=== PATIENT | female | born 1960 | race Caucasian/White ===

== ENCOUNTER 2017-05-17 01:57 | Emergency (ER) | payer OTHER ==
[~2017-05-17] VITALS: Ht 162.6 cm; Wt 125.6 kg
[~2017-05-17 01:57] MED LIST: ALBUTEROL2.5 MG/3 M INH; ALLER-TEC10 MG PO; ASPIR-LOW81 MG PO; IBUPROFEN600 MG PO; MULTI-DAY VITA1 EACH PO; OXYCODON-ACETA1 EAC2 PO; PROAIR HFA8.5 GM INH; QVAR7.3 G1 INH
[2017-05-17] MEDS ORDERED: PREDNISONE20 MG PO (02:34)
[2017-05-17] MEDS ORDERED: GUAIFENESIN-COD10 ML PO (02:34)
== END 2017-05-17 02:57 | disposition home or self-care (01) ==
LOC: ED 01:57
DX: J45.901 Unspecified asthma with (acute) exacerbation (principal); Z88.0 Allergy status to penicillin; Z79.82 Long term (current) use of aspirin; Z79.899 Other long term (current) drug therapy
CPT/HCPCS: 94640; 99283; J7512

== ENCOUNTER 2018-04-22 05:45 | Day surgery (SDC) | payer OTHER ==
[~2018-04-22] VITALS: Ht 162.6 cm; Wt 109.2 kg
[~2018-04-22 05:45] MED LIST changes: +ALEVE220 MG PO; +GUAIFENESIN-COD10 ML PO; +MAGNESIUM500 MG PO; +PREDNISONE20 MG PO
--- NOTE | 2018-04-22 09:45 | NUR ---
04/22/18 0945 Rocio Streeter [id number]-PATIENT ARRIVED TO PACU ON 6L MASK O2 SAT 100% PATIENT REACTIVE TO VOICE OPENS EYES VERY DROWSY BACK TO SLEEP. RR EVEN. DRESSING TO NECK CDI.
--- NOTE | 2018-04-22 10:01 | NUR ---
MET WITH PT'S KARMA. HE SEEMS TO BE COPING, HE IS ALSO BATTLING HEALTH ISSUES. GAVE ENCOURAGEMENT, WILL CONTINUE TO FOLLOW . GOD BLESS
--- NOTE | 2018-04-22 10:35 | NUR ---
PATIENT ARRIVED TO MEDICAL-SURGICAL FLOOR VIA HOSPITAL BED FROM PACU. PATIENT IS ALERT AND ORIENTED. VITAL SIGNS STABLE. PATIENT ON FULL LIQUID DIET. PATIENT IN BED, SCD'S IN PLACE, CALL LIGHT WITHIN REACH. IN ROOM WITH PATIENT.
--- NOTE | 2018-04-22 11:25 | NUR ---
PATIENT COMPLAINS OF INCREASING PAIN RATED 5/10. 4 MG IV MORPHINE SULFATE ADMINISTERED. PATIENT EATING JELLO. PATIENT DENIES FURTHER NEEDS AT THIS TIME, CALL LIGHT WITHIN REACH.
--- NOTE | 2018-04-22 12:40 | NUR ---
PATIENT RESTING IN BED, VISTING FAMILY. VITAL SIGNS REMAIN STABLE. CALL LIGHT WITHIN REACH. PATIENT EATING PUDDING, DENIES NAUSEA AT THIS TIME. CALL LIGHT WITHIN REACH.
--- NOTE | 2018-04-22 13:02 | NUR ---
PATIENT RATES PAIN 10/26. 600 MG MOTRIN ADMINISTERED. PATIENT VISITING FAMILY. RESPIRATIONS EVEN AND UNLABORED. PATIENT DENIES FURTHER NEEDS OR CONCERNS AT THIS TIME. CALL LIGHT WITHIN REACH.
--- NOTE | 2018-04-22 13:09 | NUR ---
PATIENT IN BED, BEDSIDE. CALL LIGHT IN REACH. NO FURTHER NEEDS AT THIS TIME.
--- NOTE | 2018-04-22 13:40 | NUR ---
VITAL SIGNS CONTINUE TO REMAIN STABLE. PATIENT UP TO BATHROOM, THEN RETURN TO BED. ONE PERSON ASSIST. CALL LIGHT WITHIN REACH, PATIENT DENIES FURTHER NEEDS. FAMILY IN ROOM WITH PATIENT.
--- NOTE | 2018-04-22 14:27 | NUR ---
STOPPED BY TO CHECK ON PT. SHE IS ALERT, ORIENTED AND SEEMS TO BE DEALING VERY APPROPRIATELY WITH SURGERY. RN IN DOING VITALS, NUMEROUS VISITORS. EXTENDED A BLESSING, WILL FOLLOW NEEDED
--- NOTE | 2018-04-22 14:40 | NUR ---
PATIENT IN BED, VISITING WITH FAMILY. RESPIRATIONS EVEN AND UNLABORED. PATIENT DENIES NEEDS AT THIS TIME. CALL LIGHT WITHIN REACH.
--- NOTE | 2018-04-22 15:28 | NUR ---
PATIENT RESTING IN BED, RESPIRATIONS EVEN AND UNLABORED. PATIENT RATES PAIN 3/10, BUT STATES CURRENT PAIN IS "TOLERABLE". CALL LIGHT WITHIN REACH.
--- NOTE | 2018-04-22 16:40 | NUR ---
AFTERNOON ASSESSMENT COMPLETE. PATIENT RATES PAIN 3/10, DENIES PAIN MANAGEMENT INTERVENTION AT THIS TIME. PATIENT EATING DINNER, CALL LIGHT WITHIN REACH.
--- NOTE | 2018-04-22 16:55 | NUR ---
IV FLUIDS DISCONTINUED PER ORDER. PATIENT TOLERATING ORAL FLUIDS WELL, VOIDING QUANTITY SUFFICIENT. CALL LIGHT WITHIN REACH.
--- NOTE | 2018-04-22 17:22 | NUR ---
PATIENT RESTING IN BED, VISITING WITH IN ROOM. RESPIRATIONS ARE EVEN AND UNLABORED. PATIENT DENIES NEEDS AT THIS TIME. PATIENT ATE 100% OF DINNER. CALL LIGHT WITHIN REACH.
[2018-04-22] MEDS ORDERED: IBUPROFEN600 MG PO (17:54)
[2018-04-22] MEDS ORDERED: MAPAP325 MG PO (17:54)
[2018-04-22] MEDS ORDERED: OXYCODON-ACETA1 EAC2 PO (17:54)
--- NOTE | 2018-04-22 18:23 | NUR ---
PATIENT SETTING UP IN BED.CALL LIGHT IN REACH, GIVING ICE WATER, NO OTHER CARE NEEDS AT THIS TIME
--- NOTE | 2018-04-22 18:34 | NUR ---
PATIENT IS A/O X4. PATIENT IS SALINE LOCKED AND AMBULATES INDEPENDENTLY. LUNG SOUNDS CEAR IN UPPER AND LOWER LOBES BILATERALLY. S1 AND S2 NOTED. PATIENT ON A FULL LIQUID DIET, TOLERATING PO FLUIDS WELL. VOIDING QUANTITY SUFFICIENT. PAIN RATED A 3/10. VITAL SIGNS STABLE.
--- NOTE | 2018-04-22 19:06 | NUR ---
RECIEVED REPORT FROM ABDIAZIZ RINCON. PT SITTING UP IN BED WITH FAMILY IN ROOM. PT COMPLAINS OF MINIMAL PAIN WITH SWALLOWING BUT DENIES PAIN MEDICATION AT THIS TIME. IV IS SALINE LOCKED. FULL LIQUID DIET WITH WATER AT BEDSIDE. HOB ELEVATED, DRESSING CLEAN, DRY AND INTACT. CALL LIGHT IN REACH.
--- NOTE | 2018-04-22 20:46 | NUR ---
ASSESSMENT COMPLETE. PT STATES PAIN IS 3/10 WHEN SHE SWALLOWS BUT DENIES PRN PAIN MEDICATIONS AT THIS TIME. PT ON CONTINUOUS PULSE OX, O2 SATURATION WNL. IV FLUSHES WELL. SCD'S IN PLACE. TRACHE SET AT BEDSIDE. DRESSING CLEAN, DRY, AND INTACT. ICE WATER AT BEDSIDE AND CALL LIGHT IN REACH.
--- NOTE | 2018-04-22 22:12 | NUR ---
PT REQUESTED PRN PAIN MEDICATIONS FOR PAIN 4/10 WITH SWALLOWING. PT ON CONTINOUS PULSE OXIMETRY WITH OXYGEN SATURATION 94%. PT GIVEN TOWEL FOR NECK, WATER AT BEDSIDE. CALL LIGHT IN REACH.
--- NOTE | 2018-04-23 00:23 | NUR ---
CHECKING ON PT TO REASSESS PAIN. PT SLEEPING, OXYGEN SATURATION 93%, BREATHING EVEN AND UNLABORED.
--- NOTE | 2018-04-23 02:30 | NUR ---
ASSESSMENT COMPLETED. PT EDUCATED ON IMPORTANCE OF KEEPING THE HOB ELEVATED WHILE IN BED. PT VERBALIZED UNDERSTANDING. PAIN 3/10 IN THROAT WHEN SWALLOWING, DENIES NEED OF PRN PAIN MEDICATION. CRACKLES IN BILATERAL LOWER LOBES. CALL LIGHT IN REACH, ICE WATER GIVEN, NO FURTHER REQUESTS.
--- NOTE | 2018-04-23 04:51 | NUR ---
PT ASLEEP IN BED. O2 91%, BREATHING EVEN AND UNLABORED. HR IN MID 70'S. HOB ELEVATED.
--- NOTE | 2018-04-23 05:24 | NUR ---
PT SLEPT THROUGHOUT SHIFT. PRN PAIN MEDICATIONS GIVEN X1. NECK DRESSING CLEAN, DRY, AND INTACT. CONTINUOUS PULSE OX ON, O2 SATURATIONS REMAINED WNL. PT IS INDEPENDENT UP TO RESTROOM. HOB ELEVATED WHILE SLEEPING. PT TOLERATING FULL LIQUID DIET. SCD'S IN PLACE.
--- NOTE | 2018-04-23 06:59 | NUR ---
ARELY CALLED REGARDING D/C INSTRUCTIONS. TELEPHONE ORDER TO REMOVE DRESSING, LEAVE STERI STRIPS IN PLACE. OKAY TO DC PT AT THIS TIME. UPDATED ON PT CONDITION.
--- NOTE | 2018-04-23 07:03 | NUR ---
SHIFT REPORT RECEIVED FROM INTERNATIONAL SALES REPRESENTATIVE RN AT BEDSIDE. PATIENT IN BED, RESPIRATIONS ARE EVEN AND UNLABORED. CALL LIGHT WITHIN REACH. PATIENT DENIES FURTHER REQUESTS AT THIS TIME.
--- NOTE | 2018-04-23 08:13 | NUR ---
PATIENT UP DOING AM CARE, INDEPENDENT. CALL LIGHT IN REACH. NO FURTHER NEEDS AT THIS TIME.
--- NOTE | 2018-04-23 08:30 | NUR ---
PATIENT IN ROOM WITH . NO REQUESTS AT THIS TIME.
--- NOTE | 2018-04-23 09:06 | NUR ---
MORNING ASSESSMENT COMPLETE. PATIENT RATES PAIN 2/10, 600 MG PO MOTRIN ADMINISTERED. PATIENT IN ROOM, AWAITING DISCHARGE INSTRUCTIONS FROM PHARMACY.
--- NOTE | 2018-04-23 09:30 | NUR ---
VERBAL AND WRITTEN DISCHARGE INSTRUCTIONS COMPLETE, ALL QUESTIONS ANSWERED APPROPERIATELY. VITAL SIGNS STABLE. PATIENT INDEPENDENTLY AMBULATED WITH NURSING STAFF TO FRONT HOSPITAL ENTRANCE. TO DRIVE PATIENT HOME.
--- NOTE | 2018-04-24 09:27 | OR ---
[facility] [address] [place], [place] [address] Signed DATE OF OPERATION: 04/22/2018 SURGEON: Cristiano Mcgee MD PREOPERATIVE DIAGNOSES: Right thyroid lobe complex cystic lesion, additional cystic lesion of upper lobe. POSTOPERATIVE DIAGNOSES: Complex right thyroid cystic lesion with solid components. Frozen pathology showing follicular cells. No confirmed malignancy. PROCEDURE PERFORMED: Right thyroid lobectomy with isthmusectomy and excision of concomitant pyramidal lobe. ANESTHESIA: General endotracheal, Olvin Aguilar CRNA. INDICATION: This 57-year-old white woman is a patient of CAROLA Nguyen. She is known to me from the past having undergone right breast cancer treatment in the past. She has incidentally noted on a CT scan of having an abnormal thyroid and an ultrasound confirmed a complex cyst of the right thyroid lobe and a very small 5 mm cyst of the left lobe. The complex cystic lesion is 2.2 cm in dimension. She has no symptoms of dysphagia. She does have some subjective symptom of swelling in the neck, however, no gross evidence of the same and she thinks that her voice has changed specifically to be "raspy." She has had radiation therapy for breast cancer on the right side, but unlikely to have any affect to her neck specifically. Options of management have been reviewed including continued observation, fine-needle aspiration biopsy by imaging technique (since not palpable) as well as right thyroid lobectomy. She prefers strongly the latter. If malignancy is identified then completion thyroidectomy would be anticipated as well. I have reviewed with the patient and her , the risks of bleeding, infection, recurrent laryngeal nerve injury, external laryngeal nerve injury, parathyroid excision which would be unintended, and other unforeseen complications. She understands and wish to proceed. FINDINGS: The cystic lesion itself had a hemorrhagic appearance at least appeared purple. It was Electronically Signed By: CRISTIANO MCGEE MD 04/24/18 0927 PATIENT NAME: SCOTT MORRISON OPERATIVE REPORT DATE OF : 60 REPORT #: [id number] PHYSICIAN: CRISTIANO MCGEE MD PCP: ARVIND GOMEZ REPORT IS CONFIDENTIAL AND NOT TO BE RELEASED WITHOUT AUTHORIZATION [facility] [address] [place], [place] [address] Signed located in the lower to mid portion of the right thyroid lobe. There was a pyramidal lobe additionally noted of no real consequence, but it was excised in continuity with the isthmus. A small amount of lower pole thyroid tissue and presumably parathyroid were left in situ based on the high vascularity of the gland itself, so as to minimize chances of recurrent laryngeal nerve injury. The recurrent laryngeal nerve was seen entering into the lateral aspect of the larynx and was unharmed. Frozen pathology of the lesion by Dr. Vinay Schaefer could confirm only complex cyst with follicular cells with no papillary features thus considered benign on frozen pathology, though final pathology is pending of course. DESCRIPTION OF PROCEDURE: The patient was brought to the operating room, given a general endotracheal anesthetic. A shoulder roll was placed, only slight neck extension was employed. A natural skin crease have been marked prior to operation. The arms were padded and carefully placed at the side. A reagan longue position was maintained. The neck and chest were prepared with a chlorhexidine solution and draped sterilely. In the area of the skin crease, an incision was made from the medial aspect of the sternocleidomastoid muscles bilaterally. Dissection carried through the dermis with electrocautery and subcutaneous and platysma layers additionally divided with electrocautery. Superior and inferior flaps were developed with both blunt and electrocautery dissection. Gelpi retractors were placed. The midline strap muscles were identified and incision with electrocautery made in the avascular plane between them. The sternohyoid and sternothyroid muscles were dissected free sharply retracting the right-sided muscles exposing underlying thyroid. There was a relatively large vein that coursed directly over the midportion of the thyroid gland, which required ligation and division to expose the thyroid more fully. The thyroid itself was inspected and a violaceous appearing cystic lesion was noted in the right lower to midportion. Using sharp and blunt dissection, the lateral aspect of the thyroid was dissected free. A small thyroidal veins were ligated with 4-0 silk ties. Inferiorly, dissection was undertaken and a fair number of small vessels were similarly dissected free and ligated variably with 4-0 silk ties and occasionally extra application of clips. Attention was turned to the superior pole, which was freed with meticulous care with individual ligation of the superior polar vessels. A pyramidal lobe was identified and subsequently dissected free. The thyroid was dissected from superior to inferior direction in the upper pole, which allowed it to roll from the posterior aspect more fully and with meticulous care, the small vessels were either clipped or ligated with 4-0 silk ties, thyroid rolling toward the midline well. The recurrent laryngeal nerve was noted to enter into the Electronically Signed By: CRISTIANO MCGEE MD 04/24/18 0927 PATIENT NAME: SCOTT MORRISON OPERATIVE REPORT DATE OF : 60 REPORT #: [id number] PHYSICIAN: CRISTIANO MCGEE MD PCP: ARVIND GOMEZ REPORT IS CONFIDENTIAL AND NOT TO BE RELEASED WITHOUT AUTHORIZATION [place] [id number] [facility] [place], [place] [address] Signed cricothyroid membrane in the lateral aspect and was well out of harm's way. Ultimately, the thyroid was freed posteriorly and subsequently the pyramidal lobe freed. The isthmus was secured with hemostats. The parenchyma divided and the specimen passed for pathology. The parenchymal remnants were secured with 4-0 silk suture. Irrigation was undertaken. There was no untoward bleeding. Small amount of Dino was placed in the posterior aspect. The inferior parathyroid gland was nestled and some remnant of thyroid, which was left in situ inferiorly. The superior parathyroid gland was not identified and may or may not be included in the specimen excised. The LP retractors were once again placed and once satisfied, there was good hemostasis. Midline strap muscles were reapproximated with interrupted 2-0 Vicryl suture. The skin was closed with running subcuticular 4-0 Vicryl. Steri-Strips were applied. By this point, the frozen pathology report returned on the complex right lower to mid cystic lesion showing follicular cells. No sign of invasion and thus considered benign on frozen pathology. Final pathology is pending. A Mepilex silver sponge dressing was applied to the anterior neck and a portion of OpSite applied to secure in place. The patient was ultimately allowed to awaken and emerged from anesthesia and taken to recovery room in good condition, having suffered no complication. Sponge, needle, and instrument counts reported as correct x3. MD KATIE Diego/LUIS ENRIQUE /[id number] cc: CAROLA Nguyen Copies: ARVIND GOMEZ ~ Electronically Signed By: CRISTIANO MCGEE MD 04/24/18 0927 PATIENT NAME: DELILAH MORRISONIDI AMAN OPERATIVE REPORT DATE OF : 60 REPORT #: [id number] PHYSICIAN: CRISTIANO MCGEE MD PCP: ARVIND GOMEZ REPORT IS CONFIDENTIAL AND NOT TO BE RELEASED WITHOUT AUTHORIZATION
== END 2018-04-23 09:30 | disposition home or self-care (01) ==
LOC: DS 05:45 → MS 10:30 → DS 04-23 09:30
PROVIDERS: Surgery
PROC: 0GTH0ZZ Resection of Right Thyroid Gland Lobe, Open Approach (ICD-10-PCS; principal; 2018-04-22 06:45)
DX: D34 Benign neoplasm of thyroid gland (principal); J45.909 Unspecified asthma, uncomplicated; I10 Essential (primary) hypertension; E66.9 Obesity, unspecified; Z88.0 Allergy status to penicillin; Z79.899 Other long term (current) drug therapy; Z79.82 Long term (current) use of aspirin; Z98.890 Other specified postprocedural states; Z85.3 Personal history of malignant neoplasm of breast; Z68.41 Body mass index [BMI] 40.0-44.9, adult
CPT/HCPCS: 00320; 94762; J2250; J2270; J2405; J2704; J2765; J3010; J7120

== ENCOUNTER 2019-09-23 22:08 | Emergency (ER) | payer OTHER ==
[~2019-09-23] VITALS: Ht 162.6 cm; Wt 118.8 kg
[~2019-09-23 22:08] MED LIST changes: +MAPAP325 MG PO
[2019-09-23] MEDS ORDERED: LEVOTHYROXINE75 MCG PO (22:26)
--- NOTE | 2019-09-24 07:44 | EKG ---
[facility] [address] [facility] [place] [address] Signed Normal sinus rhythm Normal ECG When compared with ECG of 16-APR-2018 13:28, Vent. rate has increased BY 35 BPM Inverted T waves have replaced nonspecific T wave abnormality in Inferior leads Confirmed by TUNG FULTON MD ([id number]) on 09/24/2019 7:44:36 AM Electronically Signed By: TUNG FULTON MD 09/24/19 0744 PATIENT NAME: DELILAH MORRISONIDI AMAN Electrocardiogram DATE OF : 60 PHYSICIAN: TUNG FULTON MD REPORT #: [id number] REPORT IS CONFIDENTIAL AND NOT TO BE RELEASED WITHOUT AUTHORIZATION
== END 2019-09-24 02:40 | disposition home or self-care (01) ==
LOC: ED 22:08
DX: R07.89 Other chest pain (principal); Z85.3 Personal history of malignant neoplasm of breast; J45.909 Unspecified asthma, uncomplicated; Z88.0 Allergy status to penicillin; Z79.899 Other long term (current) drug therapy
CPT/HCPCS: 71046; 80053; 83735; 84484; 85025; 93005; 93010; 99285-25

== ENCOUNTER 2020-12-18 17:44 | Emergency (ER) | payer OTHER ==
[~2020-12-18] VITALS: Ht 162.6 cm; Wt 118.8 kg
[~2020-12-18 17:44] MED LIST changes: +LEVOTHYROXINE75 MCG PO
[2020-12-18] MEDS ORDERED: FLUTICASONE PRO16 GM NAS (18:14)
[2020-12-18] MEDS ORDERED: QVAR REDIHALE10.6 GM NAS (18:14)
[2020-12-18] MEDS ORDERED: HYDROCODON-ACE1 EA10 PO (19:47)
== END 2020-12-18 20:00 | disposition home or self-care (01) ==
LOC: ED 17:44
DX: S86.911A Strain of unspecified muscle(s) and tendon(s) at lower leg level, right leg, initial encounter (principal); S70.01XA Contusion of right hip, initial encounter; W10.8XXA Fall (on) (from) other stairs and steps, initial encounter; J45.909 Unspecified asthma, uncomplicated; Z85.3 Personal history of malignant neoplasm of breast; E03.9 Hypothyroidism, unspecified; Z88.0 Allergy status to penicillin; Z79.899 Other long term (current) drug therapy
CPT/HCPCS: 73502; 73560; 99283-25

== ENCOUNTER 2021-02-04 03:32 | Emergency (ER) | payer OTHER ==
[~2021-02-04] VITALS: Ht 162.6 cm; Wt 116.6 kg
[~2021-02-04 03:32] MED LIST changes: +FLUTICASONE PRO16 GM NAS; +HYDROCODON-ACE1 EA10 PO; +QVAR REDIHALE10.6 GM NAS
--- NOTE | 2021-02-06 18:04 | EKG ---
[facility] [address] [facility] [place] [address] Signed Sinus tachycardia Possible Left atrial enlargement Nonspecific T wave abnormality Abnormal ECG When compared with ECG of 23-SEP-2019 22:17, No significant change was found Confirmed by CELSA ARRIAGA MD ([id number]) on 02/06/2021 6:04:06 PM Electronically Signed By: CELSA ARRIAGA MD 02/06/21 1804 PATIENT NAME: TAMIKOSCOTT Electrocardiogram DATE OF : 60 PHYSICIAN: CELSA ARRIAGA MD REPORT #: [id number] REPORT IS CONFIDENTIAL AND NOT TO BE RELEASED WITHOUT AUTHORIZATION
== END 2021-02-04 06:56 | disposition home or self-care (01) ==
LOC: ED 03:32
DX: R10.13 Epigastric pain (principal); J45.909 Unspecified asthma, uncomplicated; Z85.3 Personal history of malignant neoplasm of breast; E03.9 Hypothyroidism, unspecified; Z88.0 Allergy status to penicillin; Z79.899 Other long term (current) drug therapy
CPT/HCPCS: 71045; 80053; 83735; 84484; 85025; 93005; 93010; 99285-25

== ENCOUNTER 2021-09-03 19:31 | Emergency (ER) | payer OTHER ==
[~2021-09-03] VITALS: Ht 162.6 cm; Wt 113.4 kg
--- NOTE | 2021-09-04 07:50 | EKG ---
[facility] [address] [facility] [place], [place] [address] Signed Normal sinus rhythm Normal ECG When compared with ECG of 04-FEB-2021 03:42, Nonspecific T wave abnormality, improved in Anterior leads Confirmed by TUNG FULTON MD ([id number]) on 09/04/2021 7:50:23 AM Electronically Signed By: TUNG FULTON MD 09/04/21 0750 PATIENT NAME: TAMIKOSCOTT Electrocardiogram DATE OF : 60 PHYSICIAN: TUNG FULTON MD REPORT #: [id number] REPORT IS CONFIDENTIAL AND NOT TO BE RELEASED WITHOUT AUTHORIZATION
== END 2021-09-03 21:29 | disposition home or self-care (01) ==
LOC: ED 19:31
DX: U07.1 COVID-19 (principal); E03.9 Hypothyroidism, unspecified; J45.909 Unspecified asthma, uncomplicated; Z88.0 Allergy status to penicillin; Z79.890 Hormone replacement therapy; Z79.899 Other long term (current) drug therapy; Z85.3 Personal history of malignant neoplasm of breast
CPT/HCPCS: 71045; 80053; 85025; 93005; 93010; 99284-25

== ENCOUNTER 2023-10-04 17:41 | Emergency (ER) | payer OTHER ==
[~2023-10-04] VITALS: Ht 162.6 cm; Wt 116.6 kg
[2023-10-04 17:59] LABS: EOSINOPHILS 0.8 % (0-6); HEMATOCRIT 34.8 % (35.0-50.0); HEMOGLOBIN 11.9 g/dL (12.0-18.0); LYMPHOCYTES 25.8 % (24-44); MCH 34.3 (27-36); MCHC 34.2 g/dl (30-36); MCV 100.3 fl (81-99); MONOCYTES 5.8 % (0-12); NEUTROPHILS 66.6 % (39-80); PLATELET COUNT 142 K/uL (140-440); RBC 3.47 M/ul (4.3-5.7); RDW 15.1 (10.5-15.0)
[2023-10-04 18:10] LABS: ALBUMIN 3.9 g/dL (3.4-5.0); ALKALINE PHOSPHATASE 77 U/L (46-116); ALT (SGPT) 16 U/L (14-59); ANION GAP 16.6 (7-21); AST (SGOT) 12 U/L (15-37); BILIRUBIN, TOTAL 0.4 ng/dL (0.2-1.0); BUN/CREATININE RATIO 29.26 (6.0-28.6); CALCIUM 8.7 mg/dL (8.5-10.1); CARBON DIOXIDE 25 mmol/L (21-32); CHLORIDE 102 mmol/L (98-107); CREATININE, SERUM 0.82 mg/dL (0.55-1.02); GLOMERULAR FILTRATION RATE,EST 80 mL/min (>60); MAGNESIUM 1.9 mg/dL (1.8-2.4); POTASSIUM 3.6 mmol/L (3.5-5.1); PROTEIN, TOTAL 6.9 g/dL (6.4-8.2); UREA NITROGEN 24 mg/dL (7-18)
[2023-10-04 18:59] VITALS: BP 139/82
--- NOTE | 2023-10-05 13:00 | EKG ---
[facility] [address] [facility] [place] [address] Signed Normal sinus rhythm Normal ECG When compared with ECG of 03-SEP-2021 19:41, No significant change was found Confirmed by Chris Santos MD () on 10/05/2023 1:00:16 PM Electronically Signed By: CHRIS SANTOS MD 10/05/23 1300 PATIENT NAME: SCOTT MORRISON Electrocardiogram DATE OF : 60 PHYSICIAN: CHRIS SANTOS MD REPORT #: [id number] REPORT IS CONFIDENTIAL AND NOT TO BE RELEASED WITHOUT AUTHORIZATION
== END 2023-10-04 19:00 | disposition home or self-care (01) ==
LOC: ED 17:41
PROVIDERS: Emergency Medicine
DX: R55 Syncope and collapse (principal); J45.909 Unspecified asthma, uncomplicated; E03.9 Hypothyroidism, unspecified; Z88.0 Allergy status to penicillin; Z79.890 Hormone replacement therapy; Z79.51 Long term (current) use of inhaled steroids
CPT/HCPCS: 36415; 80053; 83735; 84484; 85025; 93005; 93010; 99284-25

== ENCOUNTER 2025-01-28 14:37 | Emergency (ER) | payer OTHER ==
[~2025-01-28] VITALS: Ht 160 cm; Wt 113.9 kg
[~2025-01-28 14:37] MED LIST changes: +BUDESONIDE-FO10.2 GM NAS; +EUTHYROX88 MCG PO; +IBRANCE75 M1 PO; -LEVOTHYROXINE75 MCG PO; +LISINOPRIL20 MG PO
[2025-01-28] MEDS ORDERED: FASLODEX250 MG/5 M IM (14:52)
[2025-01-28 15:16] LABS: BASOPHILS 0.4 % (0.1-1.2); EOSINOPHILS 1.5 % (0.7-5.8); HEMATOCRIT 41.5 % (34.1-44.9); HEMOGLOBIN 13.5 g/dL (11.2-15.7); LYMPHOCYTES 14.3 % (19.3-51.7); MCH 30.5 PG (25.6-32.2); MCHC 32.5 g/dL (32.2-35.5); MCV 93.9 fL (79.4-94.8); MONOCYTES 3.5 % (4.7-12.5); NEUTROPHILS 80.1 % (34.0-71.1); PLATELET COUNT 175 K/uL (182-369); RBC 4.42 M/uL (3.93-5.22)
[2025-01-28 15:29] LABS: BILIRUBIN, URINE NEGATIVE (negative); BLOOD/HGB, URINE NEGATIVE (Negative); KETONE, URINE SMALL (Negative); LEUK ESTERASE, URINE NEGATIVE (negative); NITRITE, URINE NEGATIVE (negative)
[2025-01-28 15:36] LABS: BACTERIA, URINE NONE SEEN /hpf (negative); CASTS, URINE NONE SEEN \\lpf; COLLECTION TYPE, URINE CLEAN CATCH; CRYSTALS, URINE NONE SEEN (0-1+); EPITHELIAL CELLS, URINE NONE SEEN /lpf (0-1+); RED BLOOD CELLS, URINE 0-1 /hpf (0-5); REFLEX CULTURE, URINE No (No); WHITE BLOOD CELLS, URINE 0-1 /HPF (0-5)
[2025-01-28 15:38] LABS: ALBUMIN 3.8 g/dL (3.4-5.0); ALBUMIN/GLOBULIN RATIO 1.03 (1.1-2.4); ALKALINE PHOSPHATASE 104 U/L (46-116); ALT (SGPT) 26 U/L (14-59); ANION GAP 12.7 (7-21); AST (SGOT) 17 U/L (15-37); BILIRUBIN, TOTAL 0.4 mg/dL (0.2-1.0); BUN/CREATININE RATIO 14.89 (6.0-28.6); CALCIUM 8.9 mg/dL (8.5-10.1); CARBON DIOXIDE 28 mmol/L (21-32); CHLORIDE 102 mmol/L (98-107); CREATININE, SERUM 0.94 mg/dL (0.55-1.02); GLOMERULAR FILTRATION RATE,EST 68 mL/min (>60); POTASSIUM 3.7 mmol/L (3.5-5.1); PROTEIN, TOTAL 7.5 g/dL (6.4-8.2); UREA NITROGEN 14 mg/dL (7-18)
[2025-01-28 17:36] VITALS: BP 134/75
--- NOTE | 2025-01-30 10:11 | EKG ---
[facility] [address] [facility] [place] [address] Signed Normal sinus rhythm Normal ECG When compared with ECG of 04-OCT-2023 17:53, No significant change was found Confirmed by Nikolai Rush DO ([id number]) on 01/30/2025 10:11:08 AM Electronically Signed By: NIKOLAI RUSH DO 01/30/25 1011 PATIENT NAME: TAMIKOSCOTT Electrocardiogram DATE OF : 60 PHYSICIAN: NIKOLAI RUSH DO REPORT #: [id number] REPORT IS CONFIDENTIAL AND NOT TO BE RELEASED WITHOUT AUTHORIZATION
== END 2025-01-28 17:38 | disposition home or self-care (01) ==
LOC: ED 14:37
PROVIDERS: Emergency Medicine
DX: R07.89 Other chest pain (principal); J45.909 Unspecified asthma, uncomplicated; Z88.8 Allergy status to other drugs, medicaments and biological substances; Z79.890 Hormone replacement therapy; Z79.899 Other long term (current) drug therapy
CPT/HCPCS: 36415; 80053; 81001; 83735; 84484; 85025; 93005; 93010; 99285

== ENCOUNTER 2025-03-29 06:25 | Day surgery (SDC) | payer OTHER ==
[~2025-03-29] VITALS: Ht 162.6 cm; Wt 114.4 kg
[~2025-03-29 06:25] MED LIST changes: +FASLODEX250 MG/5 M IM; +MIDAZOLAM HCL 5 MG/5 ML VIAL IV PRN; +fentaNYL citrate 100 MCG/2 ML VIAL IV PRN
[2025-03-29 06:52] VITALS: BP 119/59
[2025-03-29] MEDS ORDERED: MIDAZOLAM HCL 5 MG/5 ML VIAL ONE (06:54)
[2025-03-29] MEDS ORDERED: fentaNYL citrate 100 MCG/2 ML VIAL ONE (06:54)
[2025-03-29] MEDS ORDERED: IBLOOD GLUCOSE TEST STRIP 1 EA TEST VI PRN (07:00)
[2025-03-29] MEDS ORDERED: LACTATED RINGER'S 1,000 ML IV SCH (07:00)
[2025-03-29] MEDS ORDERED: LIDOCAINE HCL 1% 5 ML SDV INJ ONE (07:00)
--- NOTE | 2025-03-29 07:35 | NUR ---
PT NOT AVAILABLE FOR VISIT. PROVIDED PRAYER.
--- NOTE | 2025-03-29 08:18 | NUR ---
03/29/[address] PRESENTS TO PATIENT'S BEDSIDE AND IS SPEAKING WITH THE PATIENT. HER QUESTIONS ARE ANSWERED.
[2025-03-29 08:46] VITALS: BP 126/75
--- NOTE | 2025-03-31 11:57 | OR ---
[facility] [address] [place], [place] [address] Signed DATE OF OPERATION: 03/29/2025 SURGEON: Cristiano Mcgee MD PREOPERATIVE DIAGNOSIS: Colon screening. POSTOPERATIVE DIAGNOSIS: Normal colon to cecum. PROCEDURE: Total colonoscopy to cecum. ANESTHESIA: Intravenous sedation fentanyl 150 mcg and Versed 6 mg. INDICATION: This 64-year-old white woman is a patient of Arvind Mccray and last underwent colonoscopy in 2010. Normal colonoscopy was noted at that time. She does have family history of polyps of the colon in her mother, but no family history of colon cancer proper. She is admitted at this time to undergo colonoscopy. She understands the risk of bleeding, infection, and perforation. FINDINGS: The prep was excellent. Complete colonoscopy was then taken of the cecum. The colon was entirely normal to the cecum. There were no abnormalities, specifically no polyps, diverticular formation, colitis, or cancer. DESCRIPTION OF PROCEDURE: The patient was brought to the endoscopy suite and placed in lateral decubitus position, given intravenous sedation to the point of slurred speech and nystagmus. Digital rectal examination was normal. An Olympus video colonoscope was passed in the rectum and manipulated throughout the colon ultimately intubating the cecum itself. The ileocecal valve and appendiceal orifice were normal. The scope was withdrawn from that point. Examination throughout showed no sign of abnormality specifically no polyps, diverticular formation, colitis, or cancer. Retroflexed view was normal as well. The scope was removed. The patient was taken to the recovery room in good condition. Electronically Signed By: CRISTIANO MCGEE MD 03/31/25 1157 PATIENT NAME: SCOTT MORRISON OPERATIVE REPORT DATE OF : 60 REPORT #: [id number] PHYSICIAN: CRISTIANO MCGEE MD PCP: ARVIND MCCRAY REPORT IS CONFIDENTIAL AND NOT TO BE RELEASED WITHOUT AUTHORIZATION [facility] [address] [facility], [place] [address] Signed CONCLUDING DIAGNOSIS: Normal colon to cecum. PLAN: Recommend repeat colonoscopy in 10 years, sooner if clinically indicated. The patient will return to the ongoing care of CAROLA Nguyen. MD KATEI Diego/LUIS ENRIQUE /[id number] cc: CAROLA Nguyen Copies: ARVIND MCCRAY ~ Electronically Signed By: CRISTIANO MCGEE MD 03/31/25 1157 PATIENT NAME: SCOTT MORRISON OPERATIVE REPORT DATE OF : 60 REPORT #: [id number] PHYSICIAN: CRISTIANO MCGEE MD PCP: ARVIND MCCRAY REPORT IS CONFIDENTIAL AND NOT TO BE RELEASED WITHOUT AUTHORIZATION
== END 2025-03-29 08:55 | disposition home or self-care (01) ==
LOC: DS 06:25 → OPS 06:25 → DS 07:30 → OPS 08:55
PROVIDERS: ATTEND Surgery
PROC: 0DJD8ZZ Inspection of Lower Intestinal Tract, Via Natural or Artificial Opening Endoscopic (ICD-10-PCS; principal; 2025-03-29 07:30)
DX: Z12.11 Encounter for screening for malignant neoplasm of colon (principal); J45.909 Unspecified asthma, uncomplicated; I10 Essential (primary) hypertension; E89.0 Postprocedural hypothyroidism; Z83.719 Family history of colon polyps, unspecified; Z79.890 Hormone replacement therapy; Z79.899 Other long term (current) drug therapy; Z88.0 Allergy status to penicillin
CPT/HCPCS: 99153; G0500; J2250; J3010; J7121